=== PATIENT | female | born 1995 | race Two or more races ===

== ENCOUNTER 2016-09-29 13:05 | Emergency (ER) | payer BC ==
[2016-09-29 13:22] VITALS: BP 125/93
--- NOTE | 2016-09-29 13:58 | UC ---
Complaint Female HPI - HPI Summary HPI Summary: vaginal discharge x 2 days. the discharge is whit, thick, no odor to it. no pelvic/ abdominal pain, no dysuria no fever, no chills - History Of Current Complaint Chief Complaint: UCGU Stated Complaint: PERSONAL Time Seen by Provider: 09/29/16 13:16 Hx Obtained From: Patient Hx Last Menstrual Period: 09/12/16 ?: No Onset/Duration: Gradual Onset, Lasting Days - 2, Still Present Timing: Constant Severity Initially: Moderate Severity Currently: Moderate Character: Not Applicable Aggravating Factor(s): Nothing Alleviating Factor(s): Nothing Associated Signs And Symptoms: Positive: Vaginal Discharge. Negative: Fever, Back Pain, Vaginal Bleeding/Discharge, Nausea, Vomiting(# Of Episodes =), Genital Swelling, Genital Blisters, Retained Foregin Body (Specify) - Allergies/Home Medications Allergies/Adverse Reactions: Allergies Allergy/AdvReac Type Severity Reaction Status Date / Time environmental Allergy Rash Uncoded 09/29/16 13:23 Home Medications: Home Medications Cetirizine* [ZyrTEC 10 MG TAB*] 10 mg PO EVERY OTHER DAY 09/29/16 [History Confirmed 09/29/16] Hydroxychloroquine TAB* [Plaquenil TAB*] 200 mg PO DAILY 09/29/16 [History Confirmed 09/29/16] Iud 1 unit VAGINAL DAILY 09/29/16 [History Confirmed 09/29/16] PMH/Surg Hx/FS Hx/Imm Hx Previously Healthy: Yes - Surgical History Surgical History: None - Family History Known Family History: Negative: Diabetes - Social History Alcohol Use: Weekly Alcohol Amount: 2 Substance Use Type: None Smoking Status (MU): Never Smoked Tobacco Review of Systems Constitutional: Negative Skin: Negative Eyes: Negative ENT: Negative Cardiovascular: Negative All Other Systems Reviewed And Are Negative: Yes Physical Exam Triage Information Reviewed: Yes Appearance: Well-Appearing, No Pain Distress, Well-Nourished Vital Signs: Initial Vital Signs Temp 98.5 F 09/29/16 13:12 Pulse 91 09/29/16 13:12 Resp 18 09/29/16 13:12 BP 125/93 09/29/16 13:12 Vital Signs Reviewed: Yes Eye Exam: Normal Eyes: Positive: Conjunctiva Clear ENT: Positive: Normal ENT inspection, Hearing grossly normal, Pharynx normal Neck: Positive: Supple, Nontender, No Lymphadenopathy Respiratory: Positive: Chest non-tender, Lungs clear, Normal breath sounds Cardiovascular: Positive: RRR, No Murmur, Pulses Normal Abdominal Exam: Normal Abdomen Description: Positive: Nontender, Soft. Negative: CVA Tenderness (R), CVA Tenderness (L), Distended, Guarding Bowel Sounds: Positive: Present Musculoskeletal Exam: Normal Skin Exam: Normal UC Physical Exam Vital Signs On Initial Exam: Initial Vitals Temp Pulse Resp BP 98.5 F 91 18 125/93 09/29/16 13:12 09/29/16 13:12 09/29/16 13:12 09/29/16 13:12 - Genitalia Exam Female Genitourinary: Cervix Discharge - white Complaint Female Dx - Differential Dx/Diagnosis Provider Diagnoses: vaginitis Discharge - Discharge Plan Condition: Stable Disposition: HOME Prescriptions: Fluconazole [Diflucan 150 MG (NF)] 150 mg PO ONCE #2 tab Patient Education Materials: Vulvovaginal Candidiasis (ED) Additional Instructions: will check for GC/ Chl / bv /yeast will start the treatment for yeast call the office in 2 days for the culture results
--- NOTE | 2016-10-01 08:06 | UC ---
Progress - Progress Note Progress Note: PLS CALL PT AND ADVISE THAT VAGINAL SWAB POSITIVE FOR BOTH YEAST AND BV. YEAST SHOULD HAVE BEEN RESPONSIVE TO THE TREATMENT WITH DIFLUCAN. IF STILL SYMPTOMATIC WE CAN SEND IN A RX FOR FLAGYL TO TREAT BV. FOLLOW-UP NEEDED. - LORENA REID MD
== END 2016-09-29 14:05 | disposition home or self-care (01) ==
LOC: UCCORT 13:05
DX: N76.0 Acute vaginitis (principal)
CPT/HCPCS: 81003; 87086; 87480; 87491; 87510; 87591; 99202; G0463

== ENCOUNTER 2016-10-06 16:40 | Emergency (ER) | payer BC ==
--- NOTE | 2016-10-06 16:50 | UC ---
Complaint Female HPI - HPI Summary HPI Summary: 20 year old female presents with frothy discharge with a fishy odor - History Of Current Complaint Stated Complaint: PERSONAL Time Seen by Provider: 10/06/16 16:44 Hx Last Menstrual Period: 09/12/16 - Allergies/Home Medications Allergies/Adverse Reactions: Allergies Allergy/AdvReac Type Severity Reaction Status Date / Time environmental Allergy Rash Uncoded 10/06/16 16:55 PMH/Surg Hx/FS Hx/Imm Hx - Surgical History Surgical History: None - Family History Known Family History: Negative: Diabetes - Social History Alcohol Use: Weekly Alcohol Amount: 2 Substance Use Type: None Smoking Status (MU): Never Smoked Tobacco Review of Systems Constitutional: Negative Skin: Negative Eyes: Negative ENT: Negative Respiratory: Negative Cardiovascular: Negative Gastrointestinal: Negative Genitourinary: Other - vaginal discharge Motor: Negative Neurovascular: Negative Musculoskeletal: Negative Neurological: Negative Psychological: Negative All Other Systems Reviewed And Are Negative: Yes Physical Exam Triage Information Reviewed: Yes Eye Exam: Normal ENT Exam: Normal Dental Exam: Normal Neck exam: Normal Neck: Positive: 1 Respiratory Exam: Normal Cardiovascular Exam: Normal Abdominal Exam: Normal Musculoskeletal Exam: Normal Neurological Exam: Normal Psychological Exam: Normal Skin Exam: Normal Complaint Female Dx - Differential Dx/Diagnosis Provider Diagnoses: vaginal discharge Discharge - Discharge Plan Condition: Stable Disposition: HOME Prescriptions: Metronidazole [Flagyl 500 MG TAB] 500 mg PO BID #14 tab Patient Education Materials: Bacterial Vaginosis (ED) Referrals: Non Staff,Doctor [Primary Care Provider] -
[2016-10-06 17:03] VITALS: BP 109/93
== END 2016-10-06 17:02 | disposition home or self-care (01) ==
LOC: UCCORT 16:40
DX: N89.8 Other specified noninflammatory disorders of vagina (principal)
CPT/HCPCS: 99212; G0463